=== PATIENT | female | born 1975 | race Caucasian/White ===

== ENCOUNTER 2024-04-27 11:27 | Outpatient (REF) | payer BC, SELFPAY ==
[2024-05-01 23:37] LABS: Immunoglobulin E 18 kU/L (<OR=114)
== END 2024-04-27 11:28 | disposition home or self-care (01) ==
LOC: HO.10HDL 11:27
PROVIDERS: Visit Provider Otolaryngology
DX: J30.89 Other allergic rhinitis (principal)
CPT/HCPCS: 36415; 82785; 86003